=== PATIENT | male | born 1970 ===

== ENCOUNTER 2017-10-15 08:40 | Emergency (ER) | payer OTHER ==
[2017-10-15 08:54] VITALS: BP 129/84
--- NOTE | 2017-10-15 10:24 | UC ---
Beto Santillan Jacob, scribed for Bassam Hall MD on 10/15/17 at 0920 . Skin Complaint HPI - HPI Summary HPI Summary: Pt is a 47 y/o male presenting w/ erythema. Pt has multiple spots that are elliptically-shaped on his extremities, back, abdomen and thorax. He described spots as uncomfortable, hot, and slightly itchy. Spots were first noticed by pt two days ago. He is unsure if spots move around. Pt states that he experienced fever and night sweats alongside joint and neck stiffness two weeks ago which lasted for two days. He took ibuprofen during this time period. He states that since then he has been slightly below baseline and has been experiencing more headaches, fatigue, and stiffness than normal, with some days being better than others. Pt states he continued to take ibuprofen during this time as well. He believes he was bit by an insect on his LLE a week and a half ago. This area has been itchy since bite. He denies taking any other medications currently and has no known drug allergies. Pt did have hay fever for which he took claritin. Pt states he experiences itchy eyes but believes this is due to pollen allergies. - History of Current Complaint Chief Complaint: UCSkin Time Seen by Provider: 10/15/17 08:51 Stated Complaint: RASH Hx Obtained From: Patient Onset/Duration: Lasting Days - 2 days ago Skin Exposure Onset/Duration: Days Ago - 2 days ago Timing: Constant Current Severity: Mild - described as uncomfortable, hot, and somewhat itchy Pain Intensity: 0 Location: Generalized - UE, chest, abdomen, and back Character: Exposure to Heat Continuous, Redness Associated Signs & Symptoms: Positive: Weakness - fatigue, Rash - slight itchyness, Red Streaks - oval shaped spots Related History: Insect Bite/Sting - Pt believes he had an insect bite 1.5 weeks ago, Possible Reaction to: Insect - Allergy/Home Medications Allergies/Adverse Reactions: Allergies Allergy/AdvReac Type Severity Reaction Status Date / Time No Known Allergies Allergy Verified 10/15/17 08:54 Review of Systems Constitutional: Fever - Negative Skin: Rash - erythema Eyes: Other - itchy eyes Musculoskeletal: Other: - joint and neck stiffness Neurological: Headache All Other Systems Reviewed And Are Negative: Yes PMH/Surg Hx/FS Hx/Imm Hx Respiratory History: Other Other Respiratory History: Hay fever Other History Of: Negative For: HIV - Surgical History Surgical History: Yes Surgery Procedure, Year, and Place: left foot - pins placed for broken foot. left ACL tear repair - Family History Known Family History: Negative: Blood Disorder - Social History Alcohol Use: Rare Substance Use Type: None Smoking Status (MU): Never Smoked Tobacco Physical Exam - Summary Physical Exam Summary: General: well-appearing, no pain distress Skin: blanching erythema patches, ranging from 3-4 cm in length, elliptical shape. Scattered on trunk, arms and legs. Head: normal Eyes: EOMI, IZTA ENT: normal Neck: supple, nontender Respiratory: CTA, breath sounds present Cardiovascular: RRR Abdomen: soft, nontender Bowel: present Musculoskeletal: normal, strength/ROM intact Neurological: sensory/motor intact, A&O x3 Psychological: affect/mood appropriate Triage Information Reviewed: Yes Vital Signs: Initial Vital Signs Temp 99.4 F 10/15/17 08:52 Pulse 94 10/15/17 08:52 Resp 16 10/15/17 08:52 BP 129/84 10/15/17 08:52 Pulse Ox 98 10/15/17 08:52 Vital Signs Reviewed: Yes Course/Dx - Course Course Of Treatment: DUE TO CONSTITUTIONAL SX OF HEADACHE, FEVER, FEELING ILL AND UNKNOWN INSECT BITE AT THE BEGINNING OF THE ILLNESS, WILL RX DOXYCYCLINE. - Diagnoses Provider Diagnoses: RASH, INSECT BITE. Discharge - Sign-Out/Discharge Documenting (check all that apply): Discharge/Admit/Transfer - Discharge Plan Condition: Stable Disposition: HOME Prescriptions: DOXYcycline CAP(*) [DOXYcycline 100MG CAP(*)] 100 mg PO BID #42 cap Patient Education Materials: Acute Rash (ED) Referrals: Pedro Domingo MD [Medical Doctor] - Claudine Harrington [Medical Doctor] - Ana Reyna MD [Primary Care Provider] - Additional Instructions: FOLLOW UP WITH YOUR PRIMARY CARE DOCTOR AND DERMATOLOGY. YOU CAN TAKE BENADRYL NEEDED FOR THE ITCHING. YOUR LAB WORK RESULTS ARE PENDING. GET RECHECKED FOR ANY WORSENING OF YOUR CONDITION OR QUESTIONS OR CONCERNS. - Billing Disposition and Condition Condition: STABLE Disposition: Home The documentation as recorded by the Beto martin Jacob accurately reflects the service I personally performed and the decisions made by , Bassam Hall MD.
[2017-10-15 12:40] LABS: ABS Basophils 0.1 10^3/ul (0-0.2); ABS Eosinophils 0.1 10^3/ul (0-0.6); ABS Monocytes 0.7 10^3/ul (0-0.8); ABS Neutrophils 6.5 10^3/ul (1.5-7.7); ABS Nucleated RBC 0 10^3/ul; Eosinophil % 1.6 % (0-6); Hematocrit 43 % (42-52); Hemoglobin 14.6 g/dl (14.0-18.0); Lymphocyte % 12.3 % (25-47); Mean Corpuscular HGB Conc 34 g/dl (31-36); Mean Corpuscular Hemoglobin 30 pg (27-31); Mean Corpuscular Volume 88 fL (80-94); Mean Platelet Volume 7.7 um3 (7.4-10.4); Nucleated Red Blood Cells % 0; Platelet Count 455 10^3/ul (150-450); Red Blood Count 4.85 10^6/ul (4.00-5.40); Red Cell Distribution Width 13 % (10.5-15); White Blood Count 8.4 10^3/ul (3.5-10.8)
[2017-10-15 12:48] LABS: EGFR Non-African American 105.8 (>60)
--- NOTE | 2017-10-16 13:09 | UC ---
- Progress Note Progress Note: Reviewed CBC, cmp - non-concerning CRP mildly elevated no change jose 10/16/2017 Discharge - Sign-Out/Discharge Documenting (check all that apply): Post-Discharge Follow Up - Discharge Plan Condition: Stable Disposition: HOME Prescriptions: DOXYcycline CAP(*) [DOXYcycline 100MG CAP(*)] 100 mg PO BID #42 cap Patient Education Materials: Acute Rash (ED) Referrals: Pedro Domingo MD [Medical Doctor] - Claudine Harrington [Medical Doctor] - Ana Reyna MD [Primary Care Provider] - Additional Instructions: FOLLOW UP WITH YOUR PRIMARY CARE DOCTOR AND DERMATOLOGY. YOU CAN TAKE BENADRYL NEEDED FOR THE ITCHING. YOUR LAB WORK RESULTS ARE PENDING. GET RECHECKED FOR ANY WORSENING OF YOUR CONDITION OR QUESTIONS OR CONCERNS. - Billing Disposition and Condition Condition: STABLE Disposition: Home
--- NOTE | 2017-10-17 16:45 | UC ---
- Progress Note Progress Note: please call patient and let him know he is positive of LYME disease to complete the entire course of antibiotics and follow with pcp Discharge - Sign-Out/Discharge Documenting (check all that apply): Post-Discharge Follow Up - Discharge Plan Condition: Stable Disposition: HOME Prescriptions: DOXYcycline CAP(*) [DOXYcycline 100MG CAP(*)] 100 mg PO BID #42 cap Patient Education Materials: Acute Rash (ED) Referrals: Pedro Domingo MD [Medical Doctor] - Claudine Harrington [Medical Doctor] - Ana Reyna MD [Primary Care Provider] - Additional Instructions: FOLLOW UP WITH YOUR PRIMARY CARE DOCTOR AND DERMATOLOGY. YOU CAN TAKE BENADRYL NEEDED FOR THE ITCHING. YOUR LAB WORK RESULTS ARE PENDING. GET RECHECKED FOR ANY WORSENING OF YOUR CONDITION OR QUESTIONS OR CONCERNS. - Billing Disposition and Condition Condition: STABLE Disposition: Home
== END 2017-10-15 09:25 | disposition home or self-care (01) ==
LOC: UCEAST 08:40
DX: R21 Rash and other nonspecific skin eruption (principal); S80.862A Insect bite (nonvenomous), left lower leg, initial encounter; W57.XXXA Bitten or stung by nonvenomous insect and other nonvenomous arthropods, initial encounter; Y93.9 Activity, unspecified; Y92.9 Unspecified place or not applicable; R53.1 Weakness; R53.83 Other fatigue; R51 Headache; M25.60 Stiffness of unspecified joint, not elsewhere classified; M43.6 Torticollis
CPT/HCPCS: 36415; 80053; 85025; 86140; 86617; 86618; 99202; G0463